=== PATIENT | female | born 1935 | race Caucasian/White ===

== ENCOUNTER 2018-07-20 10:19 | Emergency (ER) | payer MEDICARE ==
[~2018-07-20] VITALS: Ht 157.5 cm; Wt 77.1 kg
[~2018-07-20 10:19] MED LIST: AMLO10TA82 PO; ASP81TEC PO; CODE-54 PO; ENAL20TA PO; HCT25T PO; SIMV40TA4 PO; VALA100033 PO
--- NOTE | 2018-07-20 10:55 | ED Fall/Injury ---
General Chief Complaint: Upper Extremity Stated Complaint: HAND/WRIST INJ Nursing Triage Note: PT FELL AT THE MEMORY CARE UNIT THIS AM AND INJURED HER RIGHT THUMB. BRUISING NOTED AND PT IS HOLDING IT STRAIGHT. Source: patient, caregiver Exam Limitations: other (dementia) History of Present Illness Date Seen by Provider: Jul 20, 2018 Time Seen by Provider: 10:36 Occurred: this morning Severity: mild Injuries/Pain Location: upper extremity Context: other (rolled out of bed) Loss of Consciousness: no loss of consciousness Modifying Factors: Improves With Movement Associated Symptoms (Fall): No Nausea/Vomiting 82-year-old female with a history of dementia brought to the emergency department by industry operations investigator for injury to the right hand and left elbow that occurred when patient rolled out of bed earlier today. She reports that staff. The patient over and did not find evidence of injury except the right thumb and superficial skin tear on the left elbow. There was no loss of consciousness or vomiting. Patient is reportedly behaving at her baseline. Grip Assembler reports no "blood thinners", medication list in the system shows 81 mg of aspirin but no other antiplatelet agents. Unsure last tdap. Allergies and Home Medications Allergies Coded Allergies: No Known Drug Allergies (Unverified , 04/20/10) Home Medications Amlodipine Besylate 10 Mg Tablet, 1 EACH PO DAILY, (Reported) Aspirin 81 Mg Tabec, 81 MG PO DAILY, (Reported) Codeine Phos/Acetaminophen 1 Tab Tablet, 1-2 TAB PO Q 4-6 HOURS PRN NEEDED FOR PAIN Prescribed by: JOSUE DUENAS on 12/14/11748 Enalapril Maleate 20 Mg Tablet, 20 MG PO DAILY, (Reported) Hydrochlorothiazide 25 Mg Tablet, 1 EACH PO DAILY, (Reported) Simvastatin 40 Mg Tablet, 40 MG PO HS, (Reported) Valacyclovir Hcl 1,000 Mg Tablet, 1,000 MG PO TID FOR SHINGLES Prescribed by: JOSUE DUENAS on 12/14/11748 Patient Home Medication List Home Medication List Reviewed: Yes Review of Systems Review of Systems Constitutional: no symptoms reported (full ROS not obtainable secondary to history of dementia) Past Xulcisa-Qcdnfi-Phqjsx Hx Past Med/Social Hx: Reviewed Nursing Past Med/Soc Hx Patient Social History Alcohol Use: Denies Use Recreational Drug Use: No Smoking Status: Unknown if Ever Smoked 2nd Hand Smoke Exposure: No Recent Foreign Travel: No Contact w/Someone Who Travel: No Recent Infectious Disease Expo: No Recent Hopitalizations: No Physical Abuse: No Sexual Abuse: No Mistreated: No Fear: No Seasonal Allergies Seasonal Allergies: No Past Medical History Surgeries: No Vasectomy Respiratory: No Cardiac: Yes Hypertension Neurological: Yes Dementia Reproductive Disorders: No Genitourinary: No Gastrointestinal: Yes Gastroesophageal Reflux Musculoskeletal: Yes Fractures Endocrine: No HEENT: No Cancer: No Psychosocial: No Integumentary: No Blood Disorders: No Physical Exam Vital Signs Vital Signs - First Documented 07/20/18 10:32 Temp 98.8 Pulse 66 Resp 18 B/P (MAP) 134/48 (76) Pulse Ox 97 O2 Delivery Room Air Capillary Refill : Less Than 3 Seconds Height, Weight, BMI Height: 5'2.00" Weight: 170lbs. oz. 77.278708dl; BMI Method:Actual General Appearance: no apparent distress HEENT: PERRL/EOMI, TMs normal, other (no abnormalities on inspection or palpation of the head) Neck: non-tender, supple Cardiovascular: normal peripheral pulses, regular rate, rhythm Respiratory: chest non-tender, lungs clear Gastrointestinal: non tender, soft Back: no vertebral tenderness Extremities: pelvis stable, other (mild ecchymosis and tenderness over the volar right distal thumb, superficial skin tear over the left posterior elbow ~ 3 cm, there appears to be mild discomfort with flexion of the left hip and knee , also initially mild discomfort on the contralateral side however this extinguishes, some degree of lower extremity pain is reported to be baseline for patient) Neurologic/Psychiatric: other (patient moves all extremities symmetrically, no facial asymmetry, she cannot cooperate with thorough neurologic testing secondary to dementia) Skin: warm/dry Progress/Results/Core Measures Results/Orders My Orders Orders - JACKLYN TEMPLETON DO Hand 2 View Right (07/20/18 10:44) Elbow 2 View Left (07/20/18 10:44) Dipht,Pertuss(Acell),Tet Adult (Boostrix (07/20/18 11:00) Vital Signs/I&O 07/20/18 10:32 Temp 98.8 Pulse 66 Resp 18 B/P (MAP) 134/48 (76) Pulse Ox 97 O2 Delivery Room Air Blood Pressure Mean: 76 Progress Progress Note : Progress Note 82 female history of dementia here for a right thumb injury as well as a mild skin tear on the left elbow. Radiographs demonstrated nondisplaced right distal phalanx fracture of the first digit. We applied a soft dressing to immobilize this. Recommend follow-up with primary care physician for repeat evaluation. Return if worse. Departure Impression Primary Impression: Fracture of distal phalanx of thumb Additional Impressions: Skin tear Need for tetanus booster Disposition: HOME, SELF-CARE Condition: Stable Departure-Patient Inst. Referrals: JOSUE FARNSWORTH MD (PCP/Family) Primary Care Physician Patient Instructions: Finger Fracture JACKLYN TEMPLETON DO Jul 20, 2018 10:55
[2018-07-20] MEDS ORDERED: TETANUS,DIPTH,PERTUSS P/F (BOOSTRIX) 0.5 ML VIAL IM ONE (11:00)
--- NOTE | 2018-07-20 11:29 | Diagnostic Imaging Report ---
Indication: Fall with right elbow pain. Time of exam: 10:45 AM 2 views of the right elbow demonstrate normal alignment. Joint spaces are well-maintained. No fracture, dislocation or effusion is seen. Impression: No acute bony abnormality is detected. Dictated by: Dictated on workstation # [id number]
--- NOTE | 2018-07-20 11:32 | Diagnostic Imaging Report ---
Indication: Fall with right hand swelling and bruising. Time of exam: 10:43 AM Two views of the right hand were obtained. The distal radius and ulna appear to be intact. 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 The carpus is unremarkable apart from degenerative changes at the first CMC joint. Phalanges are intact. No fractures are seen apart from a questionable lucency extending through the midportion of the distal phalanx of the thumb. Nondisplaced fracture cannot be excluded and correlation with pain at this location is recommended. Remaining phalanges are intact. There is multi-interphalangeal joint degenerative change. Impression: There is a lucency through the midshaft of the distal phalanx of the thumb, suspicious for nondisplaced fracture. No other significant abnormality is detected. Dictated by: Dictated on workstation # [id number]
[2018-07-20 11:55] VITALS: BP 128/52
== END 2018-07-20 11:55 | disposition home or self-care (01) ==
LOC: EDUNIT# 10:19 → ER FS 10:23
DX: S62.521A Displaced fracture of distal phalanx of right thumb, initial encounter for closed fracture (principal); S51.012A Laceration without foreign body of left elbow, initial encounter; F03.90 Unspecified dementia, unspecified severity, without behavioral disturbance, psychotic disturbance, mood disturbance, and anxiety; I10 Essential (primary) hypertension; K21.9 Gastro-esophageal reflux disease without esophagitis; Z23 Encounter for immunization; Z79.82 Long term (current) use of aspirin; W06.XXXA Fall from bed, initial encounter
CPT/HCPCS: 73070; 73120; 90471; 90715

== ENCOUNTER 2018-08-19 10:32 | Emergency (ER) | payer MEDICARE ==
[~2018-08-19] VITALS: Ht 157.5 cm; Wt 77.1 kg
--- NOTE | 2018-08-19 10:32 | NUR ---
EMS PT REPORTS [facility] PT FELL ATTEMPTING TO SIT IN A CHAIR ANIMAL CARE TAKER AROUND 1000. NO LOC. UNSURE IF PT HIT HEAD. EMS PALPATE A SMALL SWELLING/HEMATOMA ON RIGHT OCCIPITAL AREA. PT HAS DEMENTIA AND CAN NOT COMMUNICATE EFFECTIVELY. TRANSFERRED TO ED06 CART. SEE TRIAGE AND NON-ACTIVATION TRAUMA CHARTING FOR FURTHER DETAILS.
--- NOTE | 2018-08-19 10:51 | ED Fall/Injury ---
General Chief Complaint: Trauma-Non Activation Stated Complaint: FALL Source: EMS, RN notes reviewed, skilled nursing records Exam Limitations: other (dementia) History of Present Illness Date Seen by Provider: Aug 19, 2018 Time Seen by Provider: 10:50 Initial Comments Patient presents via EMS p/ reportedly missing her chair and falling this AM. Resides in a memory care center. Patient exhibiting signs of right hip pain. No other known injuries. Patient demented and extremely poor historian. Occurred: just prior to arrival Injuries/Pain Location: lower extremity (right) Context: other (see above) Loss of Consciousness: no loss of consciousness Modifying Factors: Worse With Movement; Improves With Rest Associated Symptoms (Fall): Confusion (chronic) Allergies and Home Medications Allergies Coded Allergies: No Known Drug Allergies (Unverified , 04/20/10) Home Medications Amlodipine Besylate 10 Mg Tablet, 1 EACH PO DAILY, (Reported) Aspirin 81 Mg Tabec, 81 MG PO DAILY, (Reported) Codeine Phos/Acetaminophen 1 Tab Tablet, 1-2 TAB PO Q 4-6 HOURS PRN NEEDED FOR PAIN Prescribed by: JOSUE DUENAS on 12/14/11 0749 Enalapril Maleate 20 Mg Tablet, 20 MG PO DAILY, (Reported) Hydrochlorothiazide 25 Mg Tablet, 1 EACH PO DAILY, (Reported) Simvastatin 40 Mg Tablet, 40 MG PO HS, (Reported) Valacyclovir Hcl 1,000 Mg Tablet, 1,000 MG PO TID FOR SHINGLES Prescribed by: JOSUE DUENAS on 12/14/11 0749 Patient Home Medication List Home Medication List Reviewed: Yes Review of Systems Review of Systems Constitutional: see HPI Musculoskeletal: see HPI, other (right hip pain) Past Imlvxup-Ttayfo-Lkagww Hx Patient Social History 2nd Hand Smoke Exposure: No Recent Hopitalizations: No Seasonal Allergies Seasonal Allergies: No Past Medical History Surgeries: No Vasectomy Respiratory: No Cardiac: Yes Hypertension Neurological: Yes Dementia Reproductive Disorders: No Genitourinary: No Gastrointestinal: Yes Gastroesophageal Reflux Musculoskeletal: Yes Fractures Endocrine: No HEENT: No Cancer: No Psychosocial: No Integumentary: No Blood Disorders: No Physical Exam Vital Signs Vital Signs - First Documented Capillary Refill : Height, Weight, BMI Height: 5'2.00" Weight: 170lbs. oz. 77.450792kf; BMI Method:Actual General Appearance: WD/WN, no apparent distress (unless moved @ all.), other ( demented) HEENT: PERRL/EOMI, other (does have some tenderness and swelling in her right occipital area c/w having hit her head) Neck: non-tender Cardiovascular: regular rate, rhythm Respiratory: no respiratory distress Rectal: deferred Extremities: other ((+) RLE shortening and external rotation; (+) tenderness c / palpation over her right greater trochanter and obvious pain c/ any movement of her RLE. ) Neurologic/Psychiatric: no motor/sensory deficits, alert; No oriented x 3; other (confused) Skin: warm/dry Calvin Coma Score Best Eye Response: (4) Open Spontaneously Best Verbal Response: (4) Confused Conversation Best Motor Response: (6) Obeys Commands Progress/Results/Core Measures Results/Orders Lab Results Laboratory Tests Test 08/19/18 11:25 Range/Units White Blood Count 6.4 4.3-11.0 10^3/uL Red Blood Count 4.25 L 4.35-5.85 10^6/uL Hemoglobin 11.9 11.5-16.0 G/DL Hematocrit 37 35-52 % Mean Corpuscular Volume 87 80-99 FL Mean Corpuscular Hemoglobin 28 25-34 PG Mean Corpuscular Hemoglobin Concent 32 32-36 G/DL Red Cell Distribution Width 13.5 10.0-14.5 % Platelet Count 227 130-400 10^3/uL Mean Platelet Volume 11.1 H 7.4-10.4 FL Neutrophils (%) (Auto) 60 42-75 % Lymphocytes (%) (Auto) 29 12-44 % Monocytes (%) (Auto) 8 0-12 % Eosinophils (%) (Auto) 3 0-10 % Basophils (%) (Auto) 1 0-10 % Neutrophils # (Auto) 3.8 1.8-7.8 X 10^3 Lymphocytes # (Auto) 1.8 1.0-4.0 X 10^3 Monocytes # (Auto) 0.5 0.0-1.0 X 10^3 Eosinophils # (Auto) 0.2 0.0-0.3 10^3/uL Basophils # (Auto) 0.0 0.0-0.1 10^3/uL Prothrombin Time 15.6 H 12.2-14.7 SEC INR Comment 1.2 0.8-1.4 Activated Partial Thromboplast Time 33 24-35 SEC Sodium Level 136 135-145 MMOL/L Potassium Level 4.6 3.6-5.0 MMOL/L Chloride Level 98 98-107 MMOL/L Carbon Dioxide Level 32 21-32 MMOL/L Anion Gap 6 5-14 MMOL/L Blood Urea Nitrogen 19 H 7-18 MG/DL Creatinine 1.34 H 0.60-1.30 MG/DL Estimat Glomerular Filtration Rate 38 BUN/Creatinine Ratio 14 Glucose Level 114 H 70-105 MG/DL Calcium Level 8.6 8.5-10.1 MG/DL Corrected Calcium 8.8 8.5-10.1 MG/DL Total Bilirubin 0.6 0.1-1.0 MG/DL Aspartate Amino Transf (AST/SGOT) 17 5-34 U/L Alanine Aminotransferase (ALT/SGPT) 6 0-55 U/L Alkaline Phosphatase 54 40-136 U/L Total Protein 6.7 6.4-8.2 GM/DL Albumin 3.7 3.2-4.5 GM/DL My Orders Orders - LISANDRO JERRY DO Ct Head/Cervical Spine Wo (08/19/18 10:50) Ct Pelvis Wo (08/19/18 10:50) Ed Iv/Invasive Line Start (08/19/18 11:28) Cbc With Automated Diff (08/19/18 11:28) Comprehensive Metabolic Panel (08/19/18 11:28) Protime With Inr (08/19/18 11:28) Partial Thromboplastin Time (08/19/18 11:28) Catheter(Uri) To Dependent Marycarmen (08/19/18 11:28) Fentanyl Injection (Sublimaze Injection (08/19/18 15:29) Fentanyl Injection (Sublimaze Injection (08/19/18 17:15) Vital Signs/I&O 08/19/18 08/19/18 08/19/18 08/19/18 10:32 10:32 15:39 17:46 Temp 97.2 97.2 97.2 97.2 Pulse 55 55 Resp 20 20 B/P (MAP) 167/67 (100) 167/67 (100) Pulse Ox 94 94 O2 Delivery Room Air Room Air 08/19/18 17:58 Temp 97.2 Pulse 62 Resp 20 B/P (MAP) 153/61 (91) Pulse Ox 94 O2 Delivery Room Air Diagnostic Imaging Diagonstic Imaging: CT Plain Films/CT/US/NM/MRI: c-spine (nothing acute), femur ((+) fracture right hip), head (nothing acute) Departure Impression Primary Impression: Fracture of hip, right, closed Additional Impressions: Fall Contusion of head Dementia Renal insufficiency Disposition: 02 XFER SHT-TRM HOSP Condition: Stable Transfer Time Spoke to Accepting Phy: 12:56 Transfer Progress Notes Spoke c/ both the orthopedic physician button riveter and the ED physician and they have accepted the patient in transfer. Transfer Facility: [facility] ([facility]) Method of Transfer: EMS Departure-Patient Inst. Referrals: JOSUE FARNSWORTH MD (PCP/Family) Primary Care Physician LISANDRO JERRY DO Aug 19, 2018 10:51
--- NOTE | 2018-08-19 11:30 | Diagnostic Imaging Report ---
PROCEDURE: CT pelvis without contrast. TECHNIQUE: Multiple contiguous axial images were obtained through the pelvis without the use of intravenous contrast. Sagittal and coronal reformations were performed. Auto Exposure Controls were utilized during the CT exam to meet ALARA standards for radiation dose reduction. INDICATION: Dementia, right hip pain. There is comminuted intertrochanteric right hip fracture with mild varus angulation. There is no dislocation of the femoral head. There are subacute insufficiency type fractures involving the right superior and inferior bree. These showed partial healing and are unrelated to the acute femoral fractures. There is some sclerosis in the right sacral ala superiorly suggestive of old healed or a nonacute partial sacral insufficiency fracture. There is SI joint degenerative changes without diastases. There is a solid posterior bone graft and fusion of the lumbosacral junction. The innominate bones were intact. No pelvic hematoma or free fluid. Impression: Mild varus angulation associated with comminuted intertrochanteric right hip/femoral fracture without dislocation. Nonacute acetabulum and femoral head. A subacute likely insufficiency type fractures of the right obturator ring at the superior and inferior pubic bree. Probable subacute incomplete insufficiency fracture right sacral ala superiorly. No intra-or extraperitoneal pelvic hematoma. Dictated by: Dictated on workstation # [id number]
--- NOTE | 2018-08-19 11:41 | Diagnostic Imaging Report ---
PROCEDURE: CT head and CT cervical spine without contrast. TECHNIQUE: Multiple contiguous axial images were obtained through the brain and cervical spine without the use of intravenous contrast. Sagittal and coronal reformations through the cervical spine were then performed. Auto Exposure Controls were utilized during the CT exam to meet ALARA standards for radiation dose reduction. INDICATION: Fall. COMPARISON: 12/14/2011 FINDINGS: Moderate atrophy. No intracranial hemorrhage. Extensive hypodensities throughout the periventricular and subcortical white matter are again identified, felt to relate to advanced background chronic small vessel white matter ischemic disease. No intracranial mass, mass effect, midline shift, herniation, hydrocephalus, or extra-axial fluid collection. No definite CT evidence of an acute ischemic infarction. Right occipital scalp swelling and hematoma without underlying calvarial fracture. The calvarium and extracalvarial soft tissues are otherwise unremarkable. The bilateral ocular lenses are absent. Otherwise, the orbits are unremarkable. The paranasal sinuses are clear. 2-3 mm anterolisthesis of C4 on C5. Alignment of the atlantooccipital joint is well maintained. Besides endplate degenerative changes, vertebral body heights are well-maintained. Minimal disc space height loss at C4/C5 and C5/C6 with moderate disc space height loss at T1/T2. No acute fracture or dislocation. Scattered facet joint degenerative changes are present, greatest on the left at C4/C5. No severe osseous central canal or neural foraminal stenosis. Scattered vascular calcifications. No apical pneumothorax. IMPRESSION: 1. No acute intracranial abnormality. 2. No acute osseous abnormality within the cervical spine with mild to moderate multilevel degenerative changes, greatest at C4/C5. 3. Right occipital scalp swelling and hematoma without underlying calvarial fracture. 4. Moderate atrophy with associated extensive background chronic small vessel white matter ischemic disease. Dictated by: Dictated on workstation # [id number]
--- NOTE | 2018-08-19 11:45 | NUR ---
PT HAS A SON, ANJU NOW PRESENT. DISCUSSED FX AND THIS SON CHOSE TRANSFER TO [place].
[2018-08-19 11:48] LABS: HEMOGLOBIN 11.9 G/DL (11.5-16.0); MEAN CORPUSCULAR HEMOGLOBIN 28 PG (25-34); WHITE BLOOD COUNT 6.4 10^3/uL (4.3-11.0)
[2018-08-19 11:49] LABS: BASOPHILS % (AUTO) 1 % (0-10); EOSINOPHILS # (AUTO) 0.2 10^3/uL (0.0-0.3); EOSINOPHILS % (AUTO) 3 % (0-10); HEMATOCRIT 37 % (35-52); LYMPHOCYTES # (AUTO) 1.8 X 10^3 (1.0-4.0); LYMPHOCYTES % (AUTO) 29 % (12-44); MEAN CORPUSCULAR HGB CONC 32 G/DL (32-36); MEAN CORPUSCULAR VOLUME 87 FL (80-99); MEAN PLATELET VOLUME 11.1 FL (7.4-10.4); MONOCYTES # (AUTO) 0.5 X 10^3 (0.0-1.0); MONOCYTES % (AUTO) 8 % (0-12); NEUTROPHILS # (AUTO) 3.8 X 10^3 (1.8-7.8); NEUTROPHILS % (AUTO) 60 % (42-75); PLATELET COUNT 227 10^3/uL (130-400); RED CELL DISTRIBUTION WIDTH 13.5 % (10.0-14.5)
[2018-08-19 12:23] LABS: INR 1.2 (0.8-1.4); PROTHROMBIN TIME PATIENT 15.6 SEC (12.2-14.7)
[2018-08-19 12:24] LABS: BILIRUBIN,TOTAL 0.6 MG/DL (0.1-1.0); CALCIUM 8.6 MG/DL (8.5-10.1); CREATININE SERUM 1.34 MG/DL (0.60-1.30); POTASSIUM 4.6 MMOL/L (3.6-5.0); TOTAL PROTEIN 6.7 GM/DL (6.4-8.2)
[2018-08-19 12:25] LABS: ALBUMIN 3.7 GM/DL (3.2-4.5)
--- NOTE | 2018-08-19 13:30 | NUR ---
UPDATED SON, AWAITING TRANSFER EMS LEAVING ON A TRANSFER
--- NOTE | 2018-08-19 14:40 | NUR ---
CALL TO [facility], SPOKE WITH CURTIS ROGEL MICT SHIFT CAPTAIN. NO AVAILABLE TRUCKS FOR MUTUAL ASSIST TRANSFER OUT OF [facility] TO [place]. DECLINE TO TRANSFER.
--- NOTE | 2018-08-19 14:42 | NUR ---
CALL TO [facility] TO REQUEST MUTUAL ASSIST WITH TRANSFERRING A PT TO [facility] IS OUT OF THE [facility] ON TRANSFER.
--- NOTE | 2018-08-19 15:00 | NUR ---
ATTEMPTED PLACEMENT OF 16 FR DAWSON CATHETER WITHOUT SUCCESS. PT VERY AGITATED AT THIS TIME AND UNABLE TO KEEP POSITIONED WELL ON ATTEMPT.
[2018-08-19] MEDS ORDERED: fentaNYL INJECTION 100 MCG/2 ML AMP IVP STA (15:29)
--- NOTE | 2018-08-19 16:00 | NUR ---
REMAIN PENDING FOR TRANSFER, FAMILY DARKENED RM AND REQUEST NIBP TO 30 MIN. PT AGITATED. WARM BLANKETS PLACED.
--- NOTE | 2018-08-19 17:00 | NUR ---
NO NOTIFICATION YET OF EMS IN COUNTY, TRANSFER PENDING.
--- NOTE | 2018-08-19 17:12 | NUR ---
ATTEMPT REPORT WITH DION GLASS.
[2018-08-19] MEDS ORDERED: fentaNYL INJECTION 100 MCG/2 ML AMP IVP ONE (17:15)
--- NOTE | 2018-08-19 17:22 | NUR ---
REPORT TO DION GLASS, ED TRIAGE CHARGE NURSE
--- NOTE | 2018-08-19 17:45 | NUR ---
EMS ARRIVING FOR PT'S TRANSFER.
--- NOTE | 2018-08-19 17:46 | NUR ---
FENTANYL 25 MCG SIVP GIVEN FOR PAIN CONTROL BEFORE TRANSFER TO [facility].
[2018-08-19 17:58] VITALS: BP 153/61
--- NOTE | 2018-08-19 17:58 | NUR ---
PT TRANSFERRED TO [facility] VIA [facility]. REPORT GIVEN TO ALEXX NIX. FAMILY DEPARTING AT THIS TIME. DGT TOOK CLOTHING AT THIS TIME ALSO. PT REMAINS CONFUSED AND MILDLY AGITATED WITH BEING OUT OF HER SURROUNDINGS. FAMILY PRESENT AND TRY TO REORIENT/CALM PT.
== END 2018-08-19 17:58 | disposition short-term general hospital (02) ==
LOC: EDUNIT# 10:32 → ER FS 10:34
DX: S72.141A Displaced intertrochanteric fracture of right femur, initial encounter for closed fracture (principal); S00.83XA Contusion of other part of head, initial encounter; F03.90 Unspecified dementia, unspecified severity, without behavioral disturbance, psychotic disturbance, mood disturbance, and anxiety; N28.9 Disorder of kidney and ureter, unspecified; I10 Essential (primary) hypertension; K21.9 Gastro-esophageal reflux disease without esophagitis; R40.2142 Coma scale, eyes open, spontaneous, at arrival to emergency department; R40.2242 Coma scale, best verbal response, confused conversation, at arrival to emergency department; R40.2362 Coma scale, best motor response, obeys commands, at arrival to emergency department; Z79.82 Long term (current) use of aspirin; Z98.52 Vasectomy status; W07.XXXA Fall from chair, initial encounter; Y92.129 Unspecified place in nursing home as the place of occurrence of the external cause
CPT/HCPCS: 36415; 70450; 72125; 72192; 80053; 85025; 85610; 85730; 96374; 96376

== ENCOUNTER → 2018-11-21 | Outpatient (CLI) | payer MEDICARE ==
[2018-11-21 17:46] LABS: CLARITY,URINE CLOUDY; COLOR,URINE YELLOW
[2018-11-21 17:47] LABS: BACTERIA,URINE MODERATE /HPF; BILIRUBIN,URINE NEGATIVE (NEGATIVE); GLUCOSE, URINE (UA) NEGATIVE (NEGATIVE); KETONES,URINE TRACE (NEGATIVE); LEUKOCYTE ESTERASE ,URINE 2+ (NEGATIVE); NITRITE,URINE POSITIVE (NEGATIVE); PROTEIN,URINE TRACE (NEGATIVE); RBC,URINE RARE /HPF; WBC,URINE 50-100 /HPF
== END ==
LOC: LAB FS 17:27
PROVIDERS: ATTEND Family Medicine
DX: Z01.89 Encounter for other specified special examinations (principal)
CPT/HCPCS: 81000; 87077; 87088